=== PATIENT | male | born 1970 | race Caucasian/White ===

== ENCOUNTER 2023-09-21 06:20 | Day surgery (SDC) | payer BC ==
[2023-09-21 06:58] VITALS: RESP 16
[2023-09-21] MEDS: Lactated Ringers 1,000 ML IV SCH (07:11)
[2023-09-21] MEDS ORDERED: DIPRIVAN 200 MG/20 ML IV ONE (07:56)
[2023-09-21 09:07] VITALS: BP 149/79; PULSE 60; TEMP 98.3; O2SAT 98
--- NOTE | 2023-09-22 09:00 | OP ---
SURGERY DATE/TIME: 09/21/2023 PREOPERATIVE DIAGNOSIS: Screening exam. POSTOPERATIVE DIAGNOSIS: Normal colon. PROCEDURE: Colonoscopy. SURGEON: Guillermo Young MD ANESTHESIA: Medication given by the anesthesia department. INDICATIONS: The patient is a 52-year-old white male patient presenting now for his first screening colonoscopy. The patient was apprised of the risks of the procedure including the risk of perforation, phlebitis, untoward reaction to medication, bleeding, and missed lesions. The patient verbalized understanding and desired to have the procedure performed. DESCRIPTION OF PROCEDURE AND FINDINGS: The patient was given medication by the anesthesia department and continuous pulse oximetry, ECG monitoring, and intermittent blood pressure monitoring during the examination. He was placed in left lateral decubitus position. Digital rectal examination was performed and revealed normal anal sphincter tone, no masses, and normal prostate. The flexible Olympus videocolonoscope was used to intubate the rectum. A view of the colon was developed sequentially to the cecum. Upon insertion and withdrawal, including retroflexion in the rectum, no mucosal lesions were encountered. The scope was removed. The patient tolerated the procedure well and was sent back to outpatient recovery in good condition. Prep was noted to be fair.
== END 2023-09-21 09:16 | disposition home or self-care (01) ==
LOC: SDC 06:20
PROVIDERS: ATTEND Family Medicine
DX: Z12.11 Encounter for screening for malignant neoplasm of colon (principal); E11.9 Type 2 diabetes mellitus without complications
CPT/HCPCS: 82947; 93005; J2704